=== PATIENT | female | born 1945 | race African-American/Black ===

== ENCOUNTER 2018-12-08 09:23 | Emergency (ER) | payer MEDICARE, MEDICAID ==
[~2018-12-08] VITALS: Ht 162.6 cm; Wt 100.0 kg
[~2018-12-08 09:23] MED LIST: AMLODIPINE; LOSA1TAB37
[2018-12-08] MEDS ORDERED: KETOROLAC 60MG/2ML VIAL IM ONE (11:00)
[2018-12-08 12:31] VITALS: BP 132/68
== END 2018-12-08 12:32 | disposition home or self-care (01) ==
LOC: ER 09:23
DX: R51 Headache (principal); L30.9 Dermatitis, unspecified; F17.200 Nicotine dependence, unspecified, uncomplicated; I10 Essential (primary) hypertension; Z79.899 Other long term (current) drug therapy
CPT/HCPCS: 70450; 96372; 99284; 99406; J1885